=== PATIENT | female | born 1940 | race Caucasian/White ===

== ENCOUNTER → 2018-06-11 | Outpatient (CLI) | payer MEDICARE, BC ==
--- NOTE | 2018-06-11 12:05 | FL ---
EXAMINATION: Cervical and Thoracic Esophagram DATE OF EXAM: 06/11/2018 CLINICAL INDICATION: 78-year-old female reactive airways disease function syndrome, coughing, increas ed mucus, GERD. COMPARISON: None Total Fluoroscopy Time: 2 minutes 53 seconds. Total images: 39 FINDINGS: Incidentally, silent aspiration is encountered. Also visualized is some delay in initiation with jaelyn ature spillage into the piriform sinuses. Anterior plates spondylosis in the cervical spine causing mild impression onto the posterior pharynge al wall with mild hypertrophy of the cricopharyngeus. The thoracic portion has a normal course and caliber. However, there is a small, smoothly marginated, less than 1 cm outpouching along the upper third esophagus. In addition, there are blunted primary a nd secondary peristaltic waves with mild tertiary peristaltic contractions and prolonged pooling of c ontrast noted throughout the esophagus. The mucosa is otherwise normal and no persistent filling defect is encountered. No hiatal hernia is present. Gastroesophageal reflux could not be elicited with Valsalva or positiona l maneuvers. IMPRESSION: 1. Incidentally visualized delayed initiation of swallow and silent aspiration. Consider speech patho logy consultation for more detailed assessment. 2. Blunted primary and secondary peristaltic contractions with prolonged pooling of contrast througho ut the esophagus. 3. Small, less than 1 cm outpouching along the upper third thoracic esophagus suspected to represent a small pulsion diverticulum. Given the smooth margin, an ulceration is considered less likely. Consi robel direct visualization. 4. Mild CP hypertrophy. No hiatal hernia.
== END | disposition home or self-care (01) ==
LOC: RADFLWHC 09:54
PROVIDERS: ATTEND Internal Medicine Geriatric Medicine
DX: K22.8 Other specified diseases of esophagus (principal); J39.2 Other diseases of pharynx
CPT/HCPCS: 74220